=== PATIENT | male | born 1955 ===

== ENCOUNTER 2023-01-15 06:44 | Day surgery (SDC) | payer MEDICARE, BC ==
[2023-01-15] MEDS ORDERED: Midazolam 1 MG/ML 2 ML SDV ONE (07:11)
[2023-01-15] MEDS ORDERED: fentaNYL 50 MCG/ML SDV ONE (07:11)
[2023-01-15] MEDS ORDERED: Propofol 200 MG/20 ML SDV ONE (07:12)
[2023-01-15] MEDS ORDERED: Lactated Ringers 1,000 ML IV SCH (07:15)
== END 2023-01-15 10:20 | disposition home or self-care (01) ==
LOC: JP.SDS 06:44
PROVIDERS: ATTEND Family Medicine
DX: Z12.11 Encounter for screening for malignant neoplasm of colon (principal); I48.91 Unspecified atrial fibrillation; I10 Essential (primary) hypertension; E11.9 Type 2 diabetes mellitus without complications; E66.9 Obesity, unspecified; Z86.010 Personal history of colon polyps
CPT/HCPCS: 93005; J2250; J2704; J3010; J7120